=== PATIENT | male | born 1990 | race Hispanic/Latino ===

== ENCOUNTER 2019-05-03 08:04 | Day surgery (SDC) | payer OTHER ==
[2019-04-30 11:36] VITALS: BP 147/82
[~2019-05-03] VITALS: Ht 167.6 cm; Wt 90.7 kg
[2019-05-03] VITALS (13 sets, daily range): BP systolic 111–129; BP diastolic 61–77
[2019-05-03] MEDS: CEFAZOLIN SODIUM 1 GM VIAL IVP SCH ×2 (09:00→10:33)
[2019-05-03] MEDS ORDERED: LACTATED RINGERS 1000ML 1,000 ML IV ONE (09:05)
[2019-05-03] MEDS ORDERED: MIDAZOLAM HCL 1 MG/ML 2ML VIAL ONE (10:26)
[2019-05-03] MEDS ORDERED: ONDANSETRON HCL 4 MG/2 ML VIAL ONE (10:26)
[2019-05-03] MEDS ORDERED: DEXAMETHASONE SOD PHOSPHATE 10MG/ML 1ML VIAL ONE (10:26)
[2019-05-03] MEDS ORDERED: PROPOFOL 10 MG/ML 20ML VIAL IV ONE (10:26)
[2019-05-03] MEDS ORDERED: LIDOCAINE PF 2% 5ML ABBOJECT ONE (10:26)
[2019-05-03] MEDS ORDERED: FENTANYL CITRATE PF 50 MCG/1 ML 2ML VIAL ONE ×2 (10:27→10:54)
[2019-05-03] MEDS ORDERED: BACITRACIN 28.4 GM OINT TP ONE (10:42)
[2019-05-03] MEDS ORDERED: BUPIVACAINE/PF 0.25% 30ML VIAL IJ ONE (10:42)
[2019-05-03] MEDS ORDERED: MEPERIDINE-PF 25 MG/ML SYG ONE (11:53)
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
== END 2019-05-03 13:30 | disposition home or self-care (01) ==
LOC: DAH 08:04
PROVIDERS: ATTEND Urology
DX: Z30.2 Encounter for sterilization (principal); Z72.89 Other problems related to lifestyle; Z87.891 Personal history of nicotine dependence
CPT/HCPCS: 55250; 88302; A4215; A4221; A4222; A4223; A4600; A4663; A6260; J0690; J1100; J2001; J2250; J2405; J2704; J3010 ×2; J3490; J7120 ×2; J2175